=== PATIENT | male | born 1975 | race Asian ===

== ENCOUNTER 2024-05-20 13:36 | Outpatient (CLI) | payer OTHER, SELFPAY ==
--- NOTE | 2024-05-20 14:15 | NEURO_ITS ---
Impression: # Complains of numbness of hands. Non-diabetic. # Normal Nerve Conduction Study. No Carpal Tunnel Syndrome or ulnar neuropathy. # Normal needle/EMG exam. Nerve Conduction Studies Anti Sensory Summary Table Stim Site NR Peak (ms) P-T Amp (?V) Site1 Site2 Delta-P (ms) Dist (cm) Carlos (m/s) Left Median Anti Sensory (2-3nd Digit) Wrist 2.7 67.7 Wrist 2-3nd Digit 2.7 14.0 52 Wrist 2.6 86.2 Wrist 2-3nd Digit 2.7 14.0 52 Right Median Anti Sensory (2-3nd Digit) Wrist 2.5 71.6 Wrist 2-3nd Digit 2.5 14.0 56 Wrist 2.5 61.0 Wrist 2-3nd Digit 2.5 14.0 56 Left Radial Anti Sensory (Base 1st Digit) Wrist 1.7 64.6 Wrist Base 1st Digit 1.7 0.0 Right Radial Anti Sensory (Base 1st Digit) Wrist 2.1 35.4 Wrist Base 1st Digit 2.1 0.0 Left Ulnar Anti Sensory (5th Digit) Wrist 2.4 89.1 Wrist 5th Digit 2.4 14.0 58 Right Ulnar Anti Sensory (5th Digit) Wrist 2.4 46.5 Wrist 5th Digit 2.4 14.0 58 Motor Summary Table Stim Site NR Onset (ms) O-P Amp (mV) Site1 Site2 Delta-0 (ms) Dist (cm) Carlos (m/s) Left Median Motor (Abd Poll Brev) Wrist 3.4 3.5 Elbow Wrist 4.4 26.0 59 Elbow 7.8 5.3 Right Median Motor (Abd Poll Brev) Wrist 2.7 9.4 Elbow Wrist 4.6 26.0 57 Elbow 7.3 7.6 Left Ulnar Motor (Abd Dig Minimi) Wrist 2.1 9.8 A Elbow Wrist 4.6 28.0 61 A Elbow 6.7 8.0 Right Ulnar Motor (Abd Dig Minimi) Wrist 2.4 8.7 A Elbow Wrist 4.7 29.0 62 A Elbow 7.1 7.8 F Wave Studies NR F-Lat (ms) L-R F-Lat (ms) Left Median (Mrkrs) (Abd Poll Brev) 24.97 0.12 Right Median (Mrkrs) (Abd Poll Brev) 25.09 0.12 Left Ulnar (Mrkrs) (Abd Dig Min) 24.64 0.67 Right Ulnar (Mrkrs) (Abd Dig Min) 25.31 0.67 EMG Side Muscle Nerve Root Ins Act Fibs Amp Dur Recrt Comment Right 1stDorInt Ulnar C8-T1 Nml Nml Nml Nml Nml Right Ext Indicis Radial (Post Int) C7-8 Nml Nml Nml Nml Nml Right Ext Digitorum Radial (Post Int) C7-8 Nml Nml Nml Nml Nml Right BrachioRad Radial C5-6 Nml Nml Nml Nml Nml Right PronatorTeres Median C6-7 Nml Nml Nml Nml Nml Right Abd Poll Brev Median C8-T1 Nml Nml Nml Nml Nml Right ABD Dig Min Ulnar C8-T1 Nml Nml Nml Nml Nml Left 1stDorInt Ulnar C8-T1 Nml Nml Nml Nml Nml Left Ext Indicis Radial (Post Int) C7-8 Nml Nml Nml Nml Nml Left Ext Digitorum Radial (Post Int) C7-8 Nml Nml Nml Nml Nml Left BrachioRad Radial C5-6 Nml Nml Nml Nml Nml Left PronatorTeres Median C6-7 Nml Nml Nml Nml Nml Left Abd Poll Brev Median C8-T1 Nml Nml Nml Nml Nml Left ABD Dig Min Ulnar C8-T1 Nml Nml Nml Nml Nml MTDD
== END 2024-05-20 13:37 | disposition home or self-care (01) ==
PROVIDERS: PCP Family Medicine; Visit Provider Family Medicine
DX: G56.93 Unspecified mononeuropathy of bilateral upper limbs (principal)
CPT/HCPCS: 95886; 95911

== ENCOUNTER 2025-01-12 07:40 | Day surgery (SDC) | payer OTHER, SELFPAY ==
[2024-12-16 14:49] VITALS: BMI 24.4
[2025-01-02 11:50] VITALS: BMI 23.4
--- OUTSIDE RECORDS SUMMARY | 2025-01-12 07:46 | XMS_ITS | Referral Summary ---
Author [place] [facility] [place] [address] Address [address] [place] [address] Care Team Providers Care Skilled Nursing Facility Counselor Name Role Phone Vita Nichols MD Primary Care Provider [phone] Allergies Active Allergy Reactions Criticality Noted Date Comments Penicillins Rash Medium 09/07/2012 Medications metoprolol XL (TOPROL-XL) 50 mg extended release tablet Take 1 tablet (50 mg total) by mouth daily 10/17/2020 Active SUMAtriptan (IMITREX) 50 mg tablet 01/10/2021 Active hydroCHLOROthiaz da 12.5 mg tablet Take 1 tablet (12.5 mg total) by mouth daily 03/10/2024 Active Active Problems Problem Noted Date Diagnosed Date 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 Hyperlipidemia LDL goal <130 10/20/2020 Essential hypertension 10/20/2020 Palpitations 10/20/2020 Social History Tobacco Use Types Packs/Day Years Used Date Smoking Tobacco: Former Cigarettes 0.3 10 Tobacco Cessation:Counseling Given: Not Answered Personal Safety Answer Date Recorded Getting School Help Needed Not on file 06/24 Sex and Gender Information Value Date Recorded Sex Assigned at Not on file Legal 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 Gender Identity Not on file Sexual Orientation Not on file Last Filed Vital Signs Vital Sign Reading Time Taken Comments Blood Pressure 124/80 03/17/2024 9:22 AM CDT Pulse 58 03/17/2024 9:22 AM CDT Temperature - - Respiratory Rate 15 10/20/2020 11:09 AM CDT Oxygen Saturation 96% 03/17/2024 9:22 AM CDT Inhaled Oxygen Concentration - - Weight 68.9 kg (152 lb) 03/17/2024 9:22 AM CDT Height 170.2 cm (5' 7) 03/17/2024 9:22 AM CDT Body Mass Index 23.81 03/17/2024 9:22 AM CDT Plan of Treatment Not on file Insurance [facility] [employer] [place] [facility] Address: [place] [address] [id number] [id number] Care Teams Skilled Nursing Facility Counselor Relationship Specialty Start Date End Date Vita Nichols MD PCP - General Family Medicine 09/17/20
--- OUTSIDE RECORDS SUMMARY | 2025-01-12 07:46 | XMS_ITS | Clinical Summary ---
Author Organization [facility] Address [address] [place] [id number] Care Team Providers Care Lot Technician Name Role Phone Vita Nichols MD Primary Care Provider [phone] Allergies Active Allergy Reactions Criticality Noted Date Comments Penicillins Rash Low 09/07/2012 Medications SUMAtriptan (IMITREX) 50 MG tablet TAKE 1 TAB AT ONSET OF HEADACHE MAY REPEAT ONCE AFTER AT LEAST 2 HOUR IF NO RELIEF-MAX 4/24 HOURS 07/25/2023 Active hydroCHLOROthia zide (MICROZIDE) 12.5 MG tablet Take 1 tablet (12.5 mg total) by mouth daily. Active metoprolol succinate ER (TOPROL-XL) 100 MG 24 hr tablet Take 1 tablet (100 mg total) by mouth daily. 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 Essential hypertension 10/20/2020 Hyperlipidemia LDL goal <130 10/20/2020 Palpitations 10/20/2020 Encounters Date Type Department Care Team Description 12/18/2024 10:55 AM CDT - 12/18/2024 11:59 PM CDT Hospital Encounter [facility] [address] [place] [address] Vita Nichols MD Discharge Disposition: Home or Self Care (Routine Discharge) 12/18/2024 Orders Only [facility] [address] [place] [address] Vita Nichols MD 12/18/2024 Travel from Last 3 Months Social History Tobacco Use Types Packs/Day Years Used Date Smoking Tobacco: Never Smokeless Tobacco: Never Tobacco Cessation:Counseling Given: No Alcohol Use Standard Drinks/Week Comments No 0 (1 standard drink = 0.6 oz pur e alcohol) AUDIT-C Answer Date Recorded Frequency of Alcohol Consumption Never 04/13/2019 Average Number of Drinks Not on file 019 Frequency of Binge Drinking Not on file 03/26 PHQ-2 Answer Date Recorded Patient Health Questionnaire-2 Score 0 06/28/2023 Sex and Gender Information Value Date Recorded Sex Assigned at Not on file Legal Sex Male 7:59 PM CDT Gender Identity Not on file Sexual Orientation Not on file Last Filed Vital Signs Vital Sign Reading Time Taken Comments Blood Pressure 100/78 06/05/2024 1:00 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 Pulse 62 06/05/2024 1:00 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 Temperature 36.3 C (97.4 F) 06/05/2024 1:00 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 Respiratory Rate 18 06/28/2023 12:08 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 Oxygen Saturation 100% 06/05/2024 1:00 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 Inhaled Oxygen Concentration - - Weight 68 kg (149 lb 14.4 oz) 06/05/2024 1:00 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 Height 170.2 cm (5' 7) 06/05/2024 1:00 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 Body Mass Index 23.48 06/05/2024 1:00 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 Plan of Treatment Health Maintenance Due Date Last Done Comments Colorectal Cancer Screening Colonoscopy (10 Years) 1973 Annual Physical 1976 Hepatitis C 12/31/1991 DTaP, Tdap and Td Vaccines ( 1 - Tdap) 1992 Hepatitis B Vaccines (1 of 3 - 19+ 3-dose series) 1992 Pneumococcal Vaccine: 50+ Years (1 of 1 - PCV) 12/31/2023 Zoster Vaccines (1 of 2) 12/31/2023 COVID-19 Vaccine (2023-2 5 season) 2024 07/01/2021, 09/27/2020, 09/06/2020 PHQ-2 (Physician [employer]) 06/25/2024 06/28/2023 Meningococcal B Vaccine Aged Out No l onger eligible based on patient's age to complete this topic Meningococcal Vaccine Aged Out No treva gee eligible based on patient's age to complete this topic RSV Immunizations Under 20 Months Aged Out No longer eligible b ased on patient's age to complete this topic Procedures Procedure Name Priority Date/Time Associated Diagnosis Comments HEPATIC FUNCTION PANEL Routine 12/18/2024 11:05 AM CDT Encounter for general adult medical examination without abnormal findings Mixed hyperlipidemia Essential (primary) hypertension Unspecified jaundice BASIC METABOLIC PANEL Routine 12/18/2024 11:05 AM CDT Encounter for general adult medical examination without abnormal findings Mixed hyperlipidemia Essential (primary) hypertension Unspecified jaundice LIPID PANEL Routine 12/18/2024 11:05 AM CDT Encounter for general adult medical examination without abnormal findings Mixed hyperlipidemia Essential (primary) hypertension Unspecified jaundice from Last 3 Months Results * (ABNORMAL) BASIC METABOLIC PANEL (12/18/2024 11:05 AM CDT) GLUCOSE 118(H) 70 - 99 MG/DL 12/18/2024 11:40 AM CDT [facility] BUN 13 7 - 18 MG/DL 12/18/2024 11:40 AM CDT [facility] CREATININE S/P/B 1.15 0.50 - 1.20 MG/DL 12/18/2024 11:40 AM CDT [facility] SODIUM S/P/B 139 136 - 145 MMOL/L 12/18/2024 11:40 AM CDT [facility] POTASSIUM S/P/B 4.0 3.5 - 5.1 MMOL/L 12/18/2024 11:40 AM CDT [facility] CHLORIDE S/P/B 103 100 - 108 MMOL/L 12/18/2024 11:40 AM CDT [facility] CO2 26.0 21.0 - 32.0 MMOL/L 12/18/2024 11:40 AM CDT [facility] CALCIUM S/P/B 8.8 8.5 - 10.1 MG/DL 12/18/2024 11:40 AM CDT [facility] ANION GAP 10.0 5.0 - 15.0 MMOL/L 12/18/2024 11:40 AM CDT [facility] BUN CREATININE RATIO 11.3 6 - 12/18/2024 11:40 AM CDT [facility] GFR ESTIMATE 78(L) >90 ML/MIN/1.7 3 M2 12/18/2024 11:40 AM CDT [facility] Comment: NOTE: eGFR is not calculated for patients <18 years of age. This is an estimated GFR calculation using the new CKD EPI creatinine equation without race and so does not require a correction factor for race. This estimated GFR should not be used for calculating drug doses. 12/18/2024 11:0 5 AM CDT us Vita Nichols MD LABORATORY Final Result [facility] [address] [address], * (ABNORMAL) LIPID PANEL (12/18/2024 11:05 AM CDT) CHOLESTEROL 198 <200 MG/DL 12/18/2024 7:46 PM CDT [facility] TRIGLYCERIDES 340(H) <150 MG/DL 12/18/2024 7:46 PM CDT [facility] HDL 37(L) >40.0 MG/DL 12/18/2024 7:46 PM CDT [facility] LDL (CALCULATED) 93 <100 MG/DL 12/18/2024 7:46 PM CDT [facility] Comment:CALCULATED USING THE FRIEDEWALD EQUATION NON HDL CHOLESTEROL 161(H) <130 MG/DL 12/18/2024 7:46 PM CDT [facility] CHOL/HDL RATIO 5.4(H) 0.0 - 4.5 12/18/2024 7:46 PM CDT [facility] VLDL CALCULATION 68(H) 5 - 55 MG/DL 12/18/2024 7:46 PM CDT [facility] LIPID INTERPRETATION 12/18/2024 7:46 PM CDT [facility] Comment: NIH CONCENSUS REPORT RECOMMENDATIONS: ADULT CHILD LOW RISK: CHOLESTEROL <200 <170 TRIGLYCERIDE <150 --- HDL >=60 --- LDL <100 <110 BORDERLINE: CHOLESTEROL 200-239 170-199 TRIGLYCERIDE 150-199 --- HDL 40-59 --- LDL 100-159 110-129 HIGH RISK: CHOLESTEROL >=240 >=200 TRIGLYCERIDE >=200 --- HDL <40 --- LDL >=160 >=130 12/18/2024 11:0 5 AM CDT Vita Nichols MD LABORATORY Final Result [facility] [address] [place] [address], * (ABNORMAL) HEPATIC FUNCTION PANEL (12/18/2024 11:05 AM CDT) [facility] TOTAL PROTEIN S/P/B 7.7 6.4 - 8.2 G/DL 12/18/2024 11:40 AM CDT [facility] ALBUMIN S/P/B 3.8 3.4 - 5.0 G/DL 12/18/2024 11:40 AM CDT [facility] BILIRUBIN TOTAL S/P/B 1.5(H) 0.2 - 1.2 MG/DL 12/18/2024 11:40 AM CDT [facility] Comment: THIS ASSAY IS NOT RECOMMENDED FOR PATIENTS UNDERGOING TREATMENT WITH ELTROMBOPAG DUE TO THE POTENTIAL FOR FALSELY ELEVATED RESULTS. BILIRUBIN DIRECT S/P/B 0.2 0.0 - 0.2 MG/DL 12/18/2024 11:40 AM CDT [facility] BILIRUBIN INDIRECT S/P/B 1.3(H) 0.0 - 0.9 MG/DL 12/18/2024 11:40 AM CDT [facility] ALKALINE PHOSPHATASE S/P/B 67 50 - 136 U/L 12/18/2024 11:40 AM CDT [facility] AST 16 15 - 37 U/L 12/18/2024 11:40 AM CDT [facility] ALT 16 16 - 60 U/L 12/18/2024 11:40 AM CDT [facility] A/G RATIO 1.0 1.0 - 2.5 RATIO 12/18/2024 11:40 AM CDT [facility] 12/18/2024 11:0 5 AM CDT us Vita iNchols MD LABORATORY Final Result [facility] [address] [place] [address], from Last [address] [place] [address] Care Teams Lot Technician Relationship Specialty Start Date End Date Vita Nichols MD PCP - General FAMILY PRACTICE 04/13/19
--- OUTSIDE RECORDS SUMMARY | 2025-01-12 07:46 | XMS_ITS | Clinical Summary ---
Author Organization [facility] [address] Address [address] [place] [address] Care Team Providers Care Auto Engine Mechanic Name Role Phone Vita Nichols MD Primary Care Provider [phone] Allergies Active Allergy Reactions Criticality Noted Date [...] <130 10/20/2020 Essential hypertension 10/20/2020 Palpitations 10/20/2020 Medical History Medical History Date Comments Arrhythmia Hypertension Hyperlipidemia Social History Tobacco Use Types Packs/Day Years Used Date Smoking Tobacco: Former Cigarettes 0.3 10 Tobacco Cessation:Counseling Given: Not Answered Personal Safety Answer Date Recorded Getting School Help Needed Not on file 06/24 Sex and Gender Information Value Date Recorded Sex Assigned at Not on file 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 Gender Identity Not on file Sexual Orientation Not on file Obstetrics History Last Filed Vital Signs Vital Sign Reading [...] 03/17/2024 9:22 AM CDT Plan of Treatment Health Maintenance Due Date Last Done Comments Colon Cancer Screening-Colonoscopy 1973 Depression Screening 1973 Hepatitis C Screening 1973 Prostate Cancer Screening-PSA 1973 DTaP/Tdap/Td Vaccine (1 - Tdap) 1984 Hepatitis B Screening 12/31/1991 Regular Well Visit/Exam 18-64 12/31/1991 Zoster Vaccine (1 of 2) 12/31/2023 Influenza Vaccine (#1) 2025 Pneumococcal vaccine <65 Aged Out No longer eligible based on patient's age to complete this topic Insurance [facility] CHO[facility] PL[facility] H[facility]/PPO Address: [facility] [id number] [place] [id number] [id number] Care Teams Auto Engine Mechanic Relationship Specialty Start Date End Date Vita Nichols MD PCP - General Family Medicine 09/17/20
[2025-01-12 07:59] VITALS: BP 124/87; PULSE 65; RESP 16; TEMP 36.1; O2SAT 99
[2025-01-12] MEDS: LACTATED RINGERS 1,000 ML 150 ML IV CONT (08:05)
--- NOTE | 2025-01-12 08:23 | P.PNAN_ITS ---
Anes - Initial Pre Proc Eval Procedure: Operation Date: 01/12/25 09:00 Proposed Procedures p Screening Colonoscopy - Brown Clark DO Date/Time: 01/12/25 08:23 Surgeon: Brown Clark DO Pre Op Diagnosis: Neoplasm Screening Patient Data Age: 49 Gender: M Height: 1.7 m Weight: 68.45 kg Last Vital Signs Temp 97 F L 01/12/25 07:59 Pulse 65 01/12/25 07:59 Resp 16 01/12/25 07:59 BP 124/87 01/12/25 07:59 Pulse Ox 99 01/12/25 07:59 O2 Del Method Room Air 01/12/25 07:59 Allergies Allergy/AdvReac Type Severity Reaction Status Date / Time Penicillins Allergy Unknown Unknown Verified 01/12/25 07:57 Home Medications ?Medication ?Instructions ?Recorded ?Confirmed ?Type sumatriptan succinate 50 mg tablet See Rx Instructions PO .COMPLEX #9 04/21/24 01/12/25 Rx tabs hydrochlorothiazide 12.5 mg tablet 12.5 mg PO DAILY #90 tabs 10/29/24 01/12/25 Rx metoprolol succinate 100 mg 100 mg PO DAILY #90 tabs 11/16/24 01/12/25 Rx tablet,extended release 24 hr Patient hx anesthesia problems: none Family hx anesthesia problems: none Results Review: All pre-operative results and documents have been reviewed as part of the pre- operative evaluation. [facility] Past Medical History Medical History Essential hypertension Gastroesophageal reflux disease [place] syndrome Hx of hemorrhoids Mixed hyperlipidemia Irritable bowel syndrome Migraine, unspecified, not intractable, without status migrainosus Surgical History Surgical History History of facial surgery Social History Social History Smoking packs per day: 0.5 Smoking cigarettes per day: 10.0 Years smoked: 15 Smoking pack-years: 7.50 Smoking status: Former smoker Tobacco type: cigarettes Second hand tobacco smoke exposure: No Smoking end date: 06/25/99 Alcohol intake: current Drinks per week: 0 Alcohol use details: ONE A MONTH Substance use: never Substance use type: does not use Living arrangements: alone Occupation/Education: occupation Gender identity (if verbalized by the patient): Male Sexual Orientation (if Verbalized by the Patient): Straight or Heterosexual Spiritual care concerns: No Agree to blood products: Yes Anes - Eval Final PreProcedure Day of Procedure 01/12/25 08:23 Heart: regular rate and rhythm Lungs: clear to auscultation Airway: Mallampati scale class III Neurological: alert and oriented Last oral intake: >/= 8 hours ASA classification: II Anesthetic plan: proceed Anesthesia type and monitoring: monitored anesthesia care Results Review: All pre-operative results and documents have been reviewed as part of the pre- operative evaluation. Informed Consent: The patient's anesthetic plan and its attendant risks and benefits were discussed with the patient/family/POA. Questions were solicited and answers provided to the satisfaction of the patient/family/POA.
--- NOTE | 2025-01-12 09:02 | PM.IMHP ---
H&P: HPI History of Present Illness Date/Time: 01/12/25 09:02 Chief Complaint: screening for colorectal cancer Narrative: this is a 49-year-old man who presents for colonoscopy. He last had a colonoscopy about 10 years ago. He denies any hematochezia or melena. He denies any family history of colon cancer. Review of Systems Review of Systems: All systems reviewed & are unremarkable except as noted in HPI and below Constitutional: Constitutional: Denies chills, Denies fever(s), Denies headache(s) and Denies weight loss Eyes: Eyes: Denies change in vision ENT: Denies dizziness, Denies headache(s), Denies neck mass and Denies throat swelling Cardiovascular: Cardiovascular: Denies chest pain, Denies lightheadedness and Denies dyspnea Respiratory: Respiratory: Denies cough, Denies dyspnea and Denies wheezing Gastrointestinal: Gastrointestinal: Denies abdominal pain, Denies change in bowel habits, Denies nausea and Denies vomiting Genitourinary: Genitourinary: Denies hematuria and Denies dysuria Musculoskeletal: Musculoskeletal: Reports as per HPI Integumentary/Breasts: Skin/Breast: Reports as per HPI Neurologic: Denies dizziness and Denies headache(s) Allergic/Immunologic: Allergic/Immunologic: Denies throat swelling and Denies wheezing [facility] Past Medical History Medical History Essential hypertension Gastroesophageal reflux disease [place] syndrome Hx of hemorrhoids Mixed hyperlipidemia Irritable bowel syndrome Migraine, unspecified, not intractable, without status migrainosus Surgical History Surgical History History of facial surgery Social History Social History Smoking packs per day: 0.5 Smoking cigarettes per day: 10.0 Years smoked: 15 Smoking pack-years: 7.50 Smoking status: Former smoker Tobacco type: cigarettes Second hand tobacco smoke exposure: No Smoking end date: 06/25/99 Alcohol intake: current Drinks per week: 0 Alcohol use details: ONE A MONTH Substance use: never Substance use type: does not use Living arrangements: alone Occupation/Education: occupation Gender identity (if verbalized by the patient): Male Sexual Orientation (if Verbalized by the Patient): Straight or Heterosexual Spiritual care concerns: No Agree to blood products: Yes Meds Home Medications and Allergies Home Medications ?Medication ?Instructions ?Recorded ?Confirmed ?Type sumatriptan succinate 50 mg tablet See Rx Instructions PO .COMPLEX #9 04/21/24 01/12/25 Rx tabs hydrochlorothiazide 12.5 mg tablet 12.5 mg PO DAILY #90 tabs 10/29/24 01/12/25 Rx metoprolol succinate 100 mg 100 mg PO DAILY #90 tabs 11/16/24 01/12/25 Rx tablet,extended release 24 hr Allergies Allergy/AdvReac Type Severity Reaction Status Date / Time Penicillins Allergy Unknown Unknown Verified 01/12/25 07:57 Vital Signs Vital Signs - 24 hr 01/12/25 07:59 Temperature 97 F L Pulse Rate 65 Respiratory Rate 16 Blood Pressure 124/87 Pulse Oximetry 99 Oxygen Delivery Room Air Exam Const: General: no acute distress and alert Orientation/consciousness: patient oriented x3 HENMT: Head: normocephalic and atraumatic Ears: hearing grossly normal bilaterally Face/Nose/Sinus: Normal nares present Mouth: Yes Normal oral and palatal mucosa present Eyes: Periorbital: periorbital findings normal Sclera: sclerae normal EOM: EOMs intact bilaterally Neck: Neck: normal visual inspection, no lymphadenopathy and trachea midline Chest: Chest palpation & inspection: normal inspection of the chest Resp: Effort & Inspection: normal respiratory effort Auscultation: clear to auscultation bilaterally Cardio: Jugular venous distension: no JVD Rate: regular rate Rhythm: regular rhythm Heart sounds: S1 normal heart sound present and S2 normal heart sound present Peripheral pulses: Peripheral pulses 2+ throughout GI: Inspection: normal to inspection GI Palp: Yes Soft to palpation, No Tenderness to palpation present (GI), No Guarding due to palpation present (GI) and No Rebound tenderness present Percussion: Yes normal to percussion Auscultation: normal bowel sounds : General: Yes no CVA tenderness Back/Spine/Pelvis: Back: no CVA tenderness Neuro: General: patient oriented x3, no focal motor deficits and CN's II-XI intact bilaterally Cognition (Neuro): normal cognition Speech: normal speech Motor exam (neuro): 5/5 motor strength present throughout Extrem: General: capillary refill normal and no clubbing, cyanosis or edema Assessment and Plan Assessment and plan (1) Screening for colorectal cancer: Code(s): Z12.11 - Encounter for screening for malignant neoplasm of colon; Z12.12 - Encounter for screening for malignant neoplasm of rectum Status: Acute Assessment and Plan: I have recommended colonoscopy. I have discussed the procedure, risks, benefits, and alternatives. Questions were answered. Patient is agreeable to proceed.
--- NOTE | 2025-01-12 09:17 | WPDANESPN ---
Anes - Prog Note Post-Op Date/Time: 01/12/25 09:17 Vital Signs: Last Vital Signs Temp 97 F L 01/12/25 07:59 Pulse 65 01/12/25 07:59 Resp 16 01/12/25 07:59 BP 124/87 01/12/25 07:59 Pulse Ox 99 01/12/25 07:59 O2 Del Method Room Air 01/12/25 07:59 Pain Score (VAS): no Patient Feedback: Patient satisfied with anesthetic care.
[2025-01-12 09:30] VITALS: BP 108/73; PULSE 60; RESP 14; O2SAT 98
[2025-01-12 09:40] VITALS: BP 101/66; PULSE 69; RESP 15; O2SAT 100
[2025-01-12 09:50] VITALS: BP 103/87; PULSE 60; RESP 14; O2SAT 99
== END 2025-01-12 09:59 | disposition home or self-care (01) ==
PROVIDERS: PCP Family Medicine; Visit Provider Surgery
PROC: 0DJD8ZZ Inspection of Lower Intestinal Tract, Via Natural or Artificial Opening Endoscopic (ICD-10-PCS; CPT 45378; principal; 2025-01-12 09:00)
DX: Z12.11 Encounter for screening for malignant neoplasm of colon (principal); K57.30 Diverticulosis of large intestine without perforation or abscess without bleeding; K64.8 Other hemorrhoids
CPT/HCPCS: 45378